=== PATIENT | female | born 1980 | race Caucasian/White ===

== ENCOUNTER → 2018-06-08 | Outpatient (CLI) | payer BC ==
[~2018-06-08] MED LIST: ALB18R INH; ESCI20TA38 PO; HYDR200T77 PO; MONT10TA PO; PREN-67 PO
[2018-06-08 17:05] LABS: PLATELET COUNT, AUTOMATED 447 K/uL (150-450)
== END ==
LOC: LAB 16:18
PROVIDERS: ATTEND Internal Medicine
DX: J45.909 Unspecified asthma, uncomplicated (principal)
CPT/HCPCS: 36415; 82785; 85025